=== PATIENT | female | born 1985 | race African-American/Black ===

== ENCOUNTER 2022-08-14 09:10 | Emergency (ER) | payer OTHER ==
[~2022-08-14] VITALS: Ht 175.3 cm; Wt 81.6 kg
[~2022-08-14 09:10] MED LIST: HYDR-4001 PO; NITR-87 PO
[2022-08-14] MEDS ORDERED: ONDANSETRON 4MG/5ML UDC PO ONE (09:45)
[2022-08-14] MEDS ORDERED: SODIUM CHLORIDE 0.9% 1,000 ML IV ONE (09:45)
[2022-08-14] MEDS ORDERED: FAMOTIDINE 20MG/2ML VIAL IV ONE (09:45)
[2022-08-14] MEDS ORDERED: KETOROLAC 15MG/ML VIAL IV ONE (09:45)
[2022-08-14 09:46] LABS: BASOPHILS % 0.9 % (0.0-2.0); EOSINOPHILS % 0.1 % (0.0-5.0); HEMATOCRIT. 32.1 % (36.0-48.0); HEMOGLOBIN. 10.1 g/dL (12.0-16.0); LYMPHOCYTES % 12.1 % (20.0-50.0); MEAN CORPUSCULAR HEMOGLOBIN 22.3 pg (28.0-32.0); MEAN CORPUSCULAR VOLUME 71.1 fL (81.0-99.0); MEAN PLATELET VOLUME 8.1 fl (7.4-10.4); MONOCYTES % 2.7 % (2.0-8.0); NEUTROPHILS % 84.2 % (40.0-76.0); PLATELET 346 x1000/uL (130-400); RED BLOOD CELL COUNT 4.51 mill/uL (4.2-5.4); RED CELL DISTRIBUTION WIDTH 19.3 % (11.6-14.6)
[2022-08-14 09:55] LABS: CHLORIDE 111 mEq/L (98-107)
[2022-08-14 10:07] LABS: CLARITY URINE TURBID (CLEAR); COLOR URINE DARK YELLOW (YELLOW); KETONES URINE 3+ (NEGATIVE); LEUKOCYTE ESTERASE URINE 1+ (NEGATIVE); NITRITE URINE NEGATIVE (NEGATIVE); OCCULT BLOOD URINE NEGATIVE (NEGATIVE); PH URINE >=9.0 (4.5-8.0); PROTEIN URINE 1+ (NEGATIVE); SPECIFIC GRAVITY URINE 1.027 (1.005-1.030)
[2022-08-14 10:08] LABS: HCG SCREEN NEGATIVE
[2022-08-14] MEDS ORDERED: ONDANSETRON HCL 4MG/2ML INJ IV ONE (14:15)
[2022-08-14] MEDS ORDERED: KETOROLAC 15MG/ML VIAL IV NR (14:30)
[2022-08-14] MEDS ORDERED: FAMOTIDINE 20MG/2ML VIAL IV NR (14:30)
[2022-08-14] MEDS ORDERED: POTASSIUM CHLORIDE 20MEQ/PACKET PO ONE (15:00)
[2022-08-14] MEDS ORDERED: HALOPERIDOL LACTATE 5MG/ML VIAL IM ONE (15:00)
[2022-08-14] MEDS ORDERED: MORPHINE SULFATE 4 MG/ML CPJ (NOT FOR IM USE) IV ONE (16:15)
[2022-08-14 16:24] VITALS: BP 143/70
[2022-08-14] MEDS ORDERED: MAG355OR21 MT (16:51)
== END 2022-08-14 18:28 | disposition home or self-care (01) ==
LOC: ER 10:08
DX: R10.9 Unspecified abdominal pain (principal)
CPT/HCPCS: 36415; 80053; 81003; 81025; 83690; 84703; 85025; 93005; 96361; 96372; 96374; 96375; 99284; J1630; J1885; J2270; J2405; J3490; J7030; Z7610